=== PATIENT | female | born 1995 | race Caucasian/White ===

== ENCOUNTER 2019-01-06 19:55 | Emergency (ER) | payer OTHER ==
[2019-01-07] MEDS ORDERED: Cyclobenzaprine TAB* 10 MG PO ONE (00:47)
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
[2019-01-07 02:04] VITALS: BP 128/86
== END 2019-01-07 01:12 | disposition home or self-care (01) ==
LOC: ED 19:55
DX: M62.838 Other muscle spasm (principal); V49.9XXA Car occupant (driver) (passenger) injured in unspecified traffic accident, initial encounter
CPT/HCPCS: 99282; A9270-GY